=== PATIENT | female | born 1950 | race Caucasian/White ===

== ENCOUNTER → 2016-10-09 | Outpatient (CLI) | payer OTHER | LOC: BMCIMAGING 09:51 | PROVIDERS: ATTEND Internal Medicine | DX: Z13.820 Encounter for screening for osteoporosis (principal); M85.80 Other specified disorders of bone density and structure, unspecified site ==

== ENCOUNTER 2017-01-26 12:32 | Emergency (ER) | payer OTHER ==
[2017-01-26 12:36] VITALS: BP 108/66; PULSE 78; RESP 17; TEMP 98.2; O2SAT 95
--- NOTE | 2017-01-26 12:39 | EDPHY ---
H & P Stated Complaint: cough/congestion Time Seen by Provider: 01/26/17 12:39 - Personal History Current Tetanus/Diphtheria Vaccine: Yes - Medical/Surgical History Hx Asthma: No Hx Chronic Respiratory Disease: No Hx Diabetes: No Hx Cardiac Disease: No Hx Renal Disease: No Hx Cirrhosis: No Hx Alcoholism: No Hx HIV/AIDS: No Hx Splenectomy or Spleen Trauma: No Other PMH: hypothyroid/femur l fx - Social History Smoking Status: Never smoked Constitutional: Initial Vital Signs Temperature (C) 36.8 C 01/26/17 12:34 Heart Rate 78 01/26/17 12:34 Respiratory Rate 17 01/26/17 12:34 Blood Pressure 108/66 01/26/17 12:34 O2 Sat (%) 95 01/26/17 12:34 O2 Delivery Mode Room Air Allergies/Adverse Reactions: No Known Allergies Allergy (Verified 01/26/17 12:33) Home Medications: Medication Instructions Recorded Levothyroxine Sodium [Synthroid] 112 mcg PO DAILY 04/07/11 HYDROcodone/HOMATROPINE HYCODA 1 tsp PO Q4-6PRN PRN #120 ml 01/26/17 [Hycodan Syrup (RX)] levOFLOXACIN [levAQUIN 750 MG (RX)] 750 mg PO DAILY #10 tab 01/26/17 Medical Decision Making ED Course/Re-evaluation: CHIEF COMPLAINT: Cough, congestion, fever HISTORY OF PRESENT ILLNESS: 67-year-old female whose had an upper respiratory illness for 7-10 days. She thought she might be getting a little better over the last couple days but she woke up this morning with fevers and chills and feeling quite poorly. The cough is keeping her up all night. She denies any chest pain or chest pressure. She has pain in her frontal sinuses to some extent but mostly she is having a significant bronchitic type cough in response. She is otherwise healthy and she is immunocompetent REVIEW OF SYSTEMS: A 10 point review of systems was performed and is negative with the exception of the elements mentioned in the history of present illness. PHYSICAL EXAM: HR, BP, O2 Sat, RR. Temp noted General Appearance: Alert, well hydrated, appropriate, and non-toxic appearing. Head: Atraumatic without scalp tenderness or obvious injury Eyes: Pupils equal, round, reactive to light and accommodation, EOMI, no trauma , no injection. Ears: Clear bilaterally, no perforation, normal landmarks Nose: Atraumatic, no rhinorrhea, clear. Throat: There is no erythema or exudates, no lesions, normal tonsils, mucus membranes moist. Neck: Supple, 2+ carotid upstroke, nontender, no lymphadenopathy. Respiratory: No retractions, no distress, no wheezes, and no accessory muscle use. Coarse rhonchi in all lung sawyer without any focal decrease Cardiovascular: Regular rate and rhythm, no murmurs, rubs, or gallops. Bilateral carotid, radial, dorsalis pedis, and posterior tibial pulses intact. Good capillary refill all extremities. Gastrointestinal: Abdomen is soft, nontender, non-distended, no masses, no rebound, no guarding, no peritoneal signs. Musculoskeletal: Normal active ROM of all extremities, atraumatic. Neurological: Alert, appropriate, and interactive. The patient has normal DTRs and non-focal cranial nerves, motor, sensory, and cerebellar exam. Skin: No rashes, good turgor, no nodules on palpation. Past medical history: Noncontributory Past surgical history: Noncontributory Family history: Noncontributory Social history: , retired, does not abuse tobacco drugs or alcohol DIFFERENTIAL DIAGNOSIS: The differential diagnosis for the patient's shortness of breath included but was not limited to pneumonia, myocardial infarction, bronchitis, postnasal drip, congestive heart failure, and pulmonary embolus. MEDICAL DECISION MAKING: This patient has a progressive upper respiratory infection that I believe now is at the very minimum significant bronchitis if not an early community-acquired pneumonia. Additionally, the cough is keeping her awake throughout the night and she is feeling worse as the illness progresses as opposed to any improvement. I will treat this patient with Levaquin despite the potential tendon side effects due to the progressive nature of her illness. Additionally I will give her Hycodan elix and she will pear picker Mucinex [id number]. Departure - Departure Disposition: Home, Routine, Self-Care Clinical Impression: Acute bronchitis Qualifiers: Bronchitis organism: Mycoplasma pneumoniae Qualified Code(s): J20.0 - Acute bronchitis due to Mycoplasma pneumoniae Condition: Good Instructions: Acute Bronchitis (ED) Additional Instructions: Return if worse. I am using Levaquin because of the progressive nature of your illness and appropriate coverage if you do have an early community-acquired pneumonia. Consequently, there can be some side effects including pain in her tendons or muscles. Even tendon rupture. These are rare side effects but if having any pain in her muscles or tendons or joints please return to the ER or discuss with your primary doctor and stop the Levaquin Referrals: Stephany Fitzpatrick MD [Primary Care Provider] - As per Instructions
== END 2017-01-26 13:06 | disposition home or self-care (01) ==
DX: J20.0 Acute bronchitis due to Mycoplasma pneumoniae (principal)

== ENCOUNTER → 2017-07-07 | Outpatient (CLI) | payer OTHER | LOC: BMCIMAGING 12:37 | PROVIDERS: ATTEND Internal Medicine | DX: N85.00 Endometrial hyperplasia, unspecified (principal); D25.9 Leiomyoma of uterus, unspecified ==

== ENCOUNTER → 2018-04-23 | Outpatient (CLI) | payer OTHER, MEDICARE | LOC: BMCIMAGING 13:49 | PROVIDERS: ATTEND Internal Medicine | DX: Z12.31 Encounter for screening mammogram for malignant neoplasm of breast (principal) ==